=== PATIENT | female | born 1990 | race Caucasian/White ===

== ENCOUNTER 2023-12-01 23:10 | Emergency (ER) | payer OTHER, SELFPAY ==
[2023-12-01 23:12] VITALS: BP 138/84; PULSE 83; RESP 16; TEMP 36.4; O2SAT 95
--- NOTE | 2023-12-02 02:03 | ED.EYEPROB ---
HPI - Eye Problem General Chief complaint: Eye Problems Stated complaint: dog scratched eye Time Seen by Provider: 12/02/23 02:01 Source: patient Mode of arrival: ambulatory Limitations: no limitations History of Present Illness HPI Narrative: 33yo presents with left eye pain after her [place] herrera dog accidentally scratched her earlier this evening while playing. Her vision is blurry. She has a foreign body sensation, like sand. Her last tetanus shot is unknown, >10 years she thinks. Does not wear contacts. She is supposed to wear glasses but doesn't/hasn't in 6 months, needs a new prescription. 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 Related Data Allergies Allergy/AdvReac Type Severity Reaction Status Date / Time No Known Allergies Allergy Verified 12/01/23 23:14 Exam Narrative: GENERAL: Well-appearing, well-nourished, and in no acute distress. HEAD: Normocephalic, atraumatic. EYES: non icteric. No hyphema. Fluroscein stain negative. EOMI. Pupils equally reactive to light. No APD. ENT: Nares clear, no rhinorrhea or epistaxis. NECK: Supple. No limitations in range of motion. CHEST: Speaking in full sentences. No respiratory distress. HEART: Regular rate and rhythm. . ABDOMEN: Soft, nondistended. EXTREMITIES: Normal range of motion. No edema. SKIN: Warm, dry, no rash. NEURO: No focal deficits. Alert and oriented. PSYCH: Normal mood and affect. Course Vital Signs Vital signs: Vital Signs Temperature 97.6 F 12/01/23 23:12 Pulse Rate 83 12/01/23 23:12 Respiratory Rate 16 12/01/23 23:12 Blood Pressure 138/84 12/01/23 23:12 Pulse Oximetry 95 12/01/23 23:12 Oxygen Delivery Room Air 12/01/23 23:12 Temperature 97.6 F 12/01/23 23:12 Pulse Rate 97 12/02/23 03:15 Respiratory Rate 16 12/02/23 03:15 Blood Pressure 129/80 12/02/23 03:15 Pulse Oximetry 97 12/02/23 03:15 Oxygen Delivery Room Air 12/01/23 23:12 MDM - Eye Problem MDM Narrative Medical decision making narrative: 33 yo female presents with left eye pain after dog accidentally scratched her while playing earlier this evening. In the ED, vital signs are within normal limits. Visual acuity 20/70 in both eyes. Last tetanus shot unknown, believes >10 years so will update. Strongly suspect corneal abrasion given mechanism and foreign body sensation. Discharged with Rx for antibiotic and f/u referral as well as ED return precautions. Stable. Differential Diagnosis Differential diagnosis: Likely corneal abrasion, hyphema, subconjunctival hemorrhage and corneal ulcer Discharge Plan Discharge Clinical Impression: Corneal abrasion Patient Disposition: Home, Self-Care Condition: Stable Instructions: Antibiotic Form, Corneal Abrasion (DC) Additional Instructions: You are being discharged with prescription for erythromycin antibiotic ointment. Apply this 4 times a day. You are also being prescribed saline eye drops. If you put these in the refrigerator they provide a cooling effect. Follow up with an eye doctor. If you don't have one there are referrals listed below. Return to the ED with new/worsening symptoms. Prescriptions: New erythromycin 5 mg/gram (0.5 %) ointment 1 applic LEFT EYE DAILY Qty: 3.5 0RF sodium chloride [[place]] 5 % drops 1 drp LEFT EYE QID Qty: 15 0RF Follow-up/Referrals: [facility] [place] [Outside] [facility] - [place] [Outside] PHYSICIAN NOT ON STAFF,NONSTAFF [Non-Staff] - Stand Alone Forms: Work/School Release IP Time of Disposition: 02:55
[2023-12-02] MEDS: FLUORESCEIN SOD 1 MG/STRIP AFFCTD EYE (02:28)
[2023-12-02] MEDS: TETANUS,DIPHTHERIA,AC PERTUSSIS ADULT (0.5 ML) BOOSTRIX IM (02:28)
[2023-12-02] MEDS: ERYTHROMYCIN OPHTH OINTMENT 1 GM TUBE 1 APPLIC LEFT EYE (03:14)
[2023-12-02 03:15] VITALS: BP 129/80; PULSE 97; RESP 16; O2SAT 97
== END 2023-12-02 03:17 | disposition home or self-care (01) ==
LOC: ANHED 12-02 03:08
PROVIDERS: Emergency Provider Student in an Organized Health Care Education/Training Program
DX: S05.02XA Injury of conjunctiva and corneal abrasion without foreign body, left eye, initial encounter (principal); Z23 Encounter for immunization; W54.8XXA Other contact with dog, initial encounter
CPT/HCPCS: 90471; 90715; 99283; A9270